=== PATIENT | female | born 1990 | race Caucasian/White ===

== ENCOUNTER 2018-02-01 01:39 | Inpatient (IN) | payer OTHER, SELFPAY ==
[2018-02-01 02:32] LABS: Absolute Lymphocytes (CBC) 2.2 K/uL (0.7-4.9); Absolute Monocytes 1.2 K/uL (0.1-1.3); Absolute Neutrophil 11.2 K/uL (1.8-8.0); Basophils % 0.3 % (0-1.3); Eosinophils % 0.5 % (0-4.4); Hematocrit 38.2 % (36.0-45.0); Lymphocytes % 14.7 % (15.3-44.8); MCH 29.5 pg (27.0-35.0); MPV 8.3 fL (7.6-11.3); RBC Red Blood Cell Count 4.25 M/uL (3.86-4.86)
[2018-02-01 02:43] LABS: Bicarbonate 23 mEq/L (21-31); Glucose Level 92 mg/dL (65-120); Potassium 3.4 mEq/L (3.6-5.0); Sodium Level 133 mEq/L (135-145)
[2018-02-01 02:49] LABS: ALT/SGPT 12 IU/L (10-60); AST/SGOT 17 IU/L (10-42); Albumin 4.2 g/dL (3.2-5.5); Alkaline Phosphatase 58 IU/L (42-121); BUN Blood Urea Nitrogen 10 mg/dL (6-20); Bilirubin Direct 0.3 mg/dL (0-0.2); Bilirubin Total 1.4 mg/dL (0.3-1.2); Protein, Total 7.1 g/dL (6.0-8.3)
[2018-02-01 02:50] LABS: Lipase < 10 U/L (22-51)
[2018-02-01 03:09] LABS: Urine Blood NEGATIVE (NEG); Urine Glucose NEGATIVE (NEG); Urine Protein NEGATIVE (NEG)
[2018-02-01] MEDS ORDERED: CEFTRIAXONE/SWI 1gm 1 GM/10 ML SYR ONE (03:27)
[2018-02-01] MEDS ORDERED: NA CHLORIDE 0.9% 1,000 ML ONE (03:33)
[2018-02-01 03:34] LABS: Urine Culture Reflex Order NOT NEEDED
[2018-02-01 03:35] LABS: Urine Bacteria 20-50 /HPF (<20); Urine Mucus 1+ /HPF (NONE SEEN); Urine RBC <5 /HPF (NONE SEEN)
[2018-02-01] MEDS ORDERED: NS KCL 20MEQ 1,000 ML IV ONE (05:11)
[2018-02-01] MEDS ORDERED: METRONIDAZOLE 500mg IVPB 500 MG/100 ML BAG IV ONE (05:11)
--- NOTE | 2018-02-01 05:12 | ER ---
Nurse's Notes [facility] Name: Yael Acevedo Age: 28 yrs Sex: Female : 1990 Arrival Date: 02/01/2018 Time: 01:40 Bed 5 Private MD: Diagnosis: Abdominal tenderness;Left sided colitis;Acute appendicitis;Cystitis Presentation: 02/01 01:45 Presenting complaint: Patient states: that yesterday she woke up with abd pain that fc radiates to her right back. States that she thought it was her kidney so she started to take AZO. Transition of care: patient was not received from another setting of care. Onset of symptoms was January 31, 2018. Initial Sepsis Screen: Does the patient meet any 2 criteria? HR > 90 bpm. Yes Does the patient have a suspected source of infection? Yes: Dysuria/Frequency/Urgency/UTI. Care prior to arrival: Medication(s) given: Azo, Tramadol, Midol, stool softners. 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 - Social history:: Smoking status: Patient uses tobacco products, smokes one-half pack cigarettes per day, Patient uses alcohol, occasionally. street drugs, marijuana. Screenin:45 Abuse screen: Denies threats or abuse. Nutritional screening: No deficits noted. fc Tuberculosis screening: No symptoms or risk factors identified. Fall Risk None identified. 01:56 Abuse screen: Denies threats or abuse. Denies injuries from another. Nutritional mg2 screening: No deficits noted. Tuberculosis screening: No symptoms or risk factors identified. Fall Risk None identified. Assessment: 01:57 General: Appears in no apparent distress. comfortable. General: Behavior is calm, mg2 cooperative. Neuro: Level of Consciousness is awake, alert, obeys commands. Cardiovascular: Capillary refill Patient's skin is warm and dry. Respiratory: Airway is patent Respiratory effort is even, labored, Respiratory pattern is regular, symmetrical. GI: Abdomen is non-distended, Reports lower abdominal pain. : Reports pain. EENT: No signs and/or symptoms were reported regarding the EENT system. Derm: Skin is intact, Skin is pink, warm \T\ dry. normal. Musculoskeletal: Circulation, motion, and sensation intact. 02:22 GI: Bowel sounds present X 4 quads. Abd is soft and non tender Reports. ak1 03:57 Reassessment: Patient appears in no apparent distress at this time. Patient is alert, ak1 oriented x 3, equal unlabored respirations, skin warm/dry/pink. 05:32 Reassessment: Patient appears in no apparent distress at this time. Patient and/or ak1 family updated on plan of care and expected duration. Pain level reassessed. Patient is alert, oriented x 3, equal unlabored respirations, skin warm/dry/pink. Vital Signs: 01:45 BP 132 / 88; Pulse 113; Resp 18; Temp 98.9(O); Pulse Ox 99% on R/A; Weight 48.99 kg fc (R); Height 5 ft. 0 in. (152.40 cm) (R); Pain 8/10; 02:19 BP 120 / 80; Pulse 94; Resp 18; Pulse Ox 100% on R/A; mt 03:50 BP 115 / 75; Pulse 90; Resp 18; Pulse Ox 100% on R/A; ak1 05:31 BP 103 / 62; Pulse 96; Resp 18; Temp 98.9(O); Pulse Ox 100% on R/A; Pain 4/10; ak1 01:45 Body Mass Index 21.09 (48.99 kg, 152.40 cm) ED Course: 01:40 Patient arrived in ED. am2 01:45 Arm band placed on Patient placed in an exam room, on a stretcher. 01:45 Patient has correct armband on for positive identification. Bed in low position. Call light in reach. Pulse ox on. NIBP on. 01:45 No provider procedures requiring assistance completed. 01:54 Triage completed. 01:55 Hiro Palmer PA is PHCP. jr8 01:55 Jf Snyder MD is Attending Physician. jr8 01:56 Patient has correct armband on for positive identification. Bed in low position. Call mg2 light in reach. Door closed. 02:22 Kellie Gonzales RN is Primary Nurse. ak1 02:23 Initial lab(s) drawn, by ne, sent to lab. Urine collected: clean catch specimen. ak1 Inserted saline lock: 20 gauge in right antecubital area, using aseptic technique. Blood collected. 03:59 CT Abd/Pelvis - W/Contrast In Process Unspecified. EDMS 05:11 Jalyn Turcios MD is Hospitalizing Provider. kemar 06:16 Patient admitted, IV remains in place. ak1 09:08 Primary Nurse role handed off by Kellie Gonzales RN 09:08 Tayler Castillo RN is Primary Nurse. sv Administered Medications: 03:31 Drug: Rocephin - (cefTRIAXone) 1 grams Route: IVPB; Infused Over: 30 mins; Site: right mg2 antecubital; 05:08 Follow up: IV Status: Completed infusion ak1 03:34 Drug: NS 0.9% 1000 ml Route: IV; Rate: 1 bolus; Site: right antecubital; mg2 05:15 Follow up: IV Status: Completed infusion ak1 05:15 Drug: Flagyl 500 mg Volume: 100 ml; Route: IVPB; Rate: 200 ml/hr; Infused Over: 30 ak1 mins; Site: right antecubital; 06:17 Follow up: IV Status: Infusion continued upon admission ak1 05:31 Drug: NS 0.9% with KCl 20 mEq/L 1000 ml Route: IV; Rate: 125 ml/hr; Site: right ak1 antecubital; 06:17 Follow up: IV Status: Infusion continued upon admission ak1 06:24 CANCELLED (med not found): fentaNYL (PF) 25 mcg IVP once ak1 06:24 Not Given (medication not found): fentaNYL (PF) 25 mcg IVP once ak1 06:44 Not Given (Physician Discretion): Zofran 4 mg IVP once; over 2 minutes mg2 Outcome: 02:22 Condition: good ak1 05:12 Decision to Hospitalize by Provider. kemar 06:16 Admitted to ER Hold. Please see [facility] for further documentation. ak1 06:16 Instructed on the need for admit. 09:51 Patient left the ED. sv Signatures: Dispatcher [employer] EDMA Tayler Castillo RN RN sv Anderson, Corey, MD MD cha Chretien Liana, RN RN fc Hiro Palmer PA PA jr8 Kellie Gonzales RN RN ak1 Trinidad Mcwilliams Moriah mt Gardose, Michele, RN RN mg2
--- NOTE | 2018-02-01 05:12 | EDPHYS ---
Physician Documentation [facility] Name: Yael Acevedo Age: 28 yrs Sex: Female : 1990 Arrival Date: 02/01/2018 Time: 01:40 Bed 5 Private MD: ED Physician Jf Snyder HPI: 02/01 02:22 This 28 yrs old Female presents to ER via Ambulatory with complaints of jr8 Abdominal Pain - radiating to mid back. 02:22 The patient presents with abdominal pain that is diffuse. Onset: The symptoms/episode jr8 began/occurred acutely, today. The symptoms do not radiate. Associated signs and symptoms: none. The symptoms are described as stabbing, steady. Modifying factors: The symptoms are alleviated by nothing, the symptoms are aggravated by nothing. Severity of pain: At its worst the pain was moderate in the emergency department the pain is unchanged. The patient has not experienced similar symptoms in the past. The patient has not recently seen a physician. 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 - Social history:: Smoking status: Patient uses tobacco products, smokes one-half pack cigarettes per day, Patient uses alcohol, occasionally. street drugs, marijuana. ROS: 02:22 Eyes: Negative for injury, pain, redness, and discharge, ENT: Negative for injury, jr8 pain, and discharge, Neck: Negative for injury, pain, and swelling, Cardiovascular: Negative for chest pain, palpitations, and edema, Respiratory: Negative for shortness of breath, cough, wheezing, and pleuritic chest pain, Back: Negative for injury and pain, MS/Extremity: Negative for injury and deformity, Skin: Negative for injury, rash, and discoloration, Neuro: Negative for headache, weakness, numbness, tingling, and seizure. 02:22 Abdomen/GI: Positive for abdominal pain, Negative for nausea, vomiting, and diarrhea, abdominal distension, anorexia, dysphagia, hematemesis, black/tarry stool, rectal pain, rectal bleeding, bowel incontinence, flatulence. Exam: 02:22 Eyes: Pupils equal round and reactive to light, extra-ocular motions intact. Lids and jr8 lashes normal. Conjunctiva and sclera are non-icteric and not injected. Cornea within normal limits. Periorbital areas with no swelling, redness, or edema. ENT: Nares patent. No nasal discharge, no septal abnormalities noted. Tympanic membranes are normal and external auditory canals are clear. Oropharynx with no redness, swelling, or masses, exudates, or evidence of obstruction, uvula midline. Mucous membranes moist. Neck: Trachea midline, no thyromegaly or masses palpated, and no cervical lymphadenopathy. Supple, full range of motion without nuchal rigidity, or vertebral point tenderness. No Meningismus. Cardiovascular: Regular rate and rhythm with a normal S1 and S2. No gallops, murmurs, or rubs. Normal PMI, no JVD. No pulse deficits. Respiratory: Lungs have equal breath sounds bilaterally, clear to auscultation and percussion. No rales, rhonchi or wheezes noted. No increased work of breathing, no retractions or nasal flaring. Back: No spinal tenderness. No costovertebral tenderness. Full range of motion. Skin: Warm, dry with normal turgor. Normal color with no rashes, no lesions, and no evidence of cellulitis. MS/ Extremity: Pulses equal, no cyanosis. Neurovascular intact. Full, normal range of motion. Neuro: Awake and alert, GCS 15, oriented to person, place, time, and situation. Cranial nerves II-XII grossly intact. Motor strength 5/5 in all extremities. Sensory grossly intact. Cerebellar exam normal. Normal gait. 02:22 Abdomen/GI: Inspection: abdomen appears normal, Bowel sounds: active, all quadrants, Palpation: soft, in all quadrants, mild abdominal tenderness, in the right lower quadrant and left lower quadrant, mass, is not appreciated, rebound tenderness, is not appreciated, voluntary guarding, is not appreciated, involuntary guarding, is not appreciated, no appreciated organomegaly, Indicators: McBurney's point is not tender, Jimenes's sign is negative, Rovsing's sign is negative, Liver: no appreciated palpable abnormalities, tenderness, is not appreciated. Vital Signs: 01:45 BP 132 / 88; Pulse 113; Resp 18; Temp 98.9(O); Pulse Ox 99% on R/A; Weight 48.99 kg fc (R); Height 5 ft. 0 in. (152.40 cm) (R); Pain 8/10; 02:19 BP 120 / 80; Pulse 94; Resp 18; Pulse Ox 100% on R/A; mt 03:50 BP 115 / 75; Pulse 90; Resp 18; Pulse Ox 100% on R/A; ak1 05:31 BP 103 / 62; Pulse 96; Resp 18; Temp 98.9(O); Pulse Ox 100% on R/A; Pain 4/10; ak1 01:45 Body Mass Index 21.09 (48.99 kg, 152.40 cm) fc MDM: 01:55 Patient medically screened. [facility] 18:11 Data reviewed: vital signs, nurses notes, lab test result(s), radiologic studies, CT jr8 scan. Data interpreted: Pulse oximetry: on room air is 100 %. Interpretation: normal. Counseling: I had a detailed discussion with the patient and/or guardian regarding: the historical points, exam findings, and any diagnostic results supporting the discharge/admit diagnosis, lab results, radiology results, the need for further work-up and treatment in the hospital. 02/01 02:02 Order name: Urine Dipstick--Ancillary (enter results) [facility] 02/01 02:02 Order name: Urine --Ancillary (enter results) [facility] 02/01 02:03 Order name: Basic Metabolic Panel; Complete Time: 02: [facility] 02/01 02:03 Order name: CBC with Diff; Complete Time: 03: [facility] 02/01 02:03 Order name: Creatinine for Radiology; Complete Time: 02: 02/01 02:03 Order name: Hepatic Function; Complete Time: 02:51 [facility] 02/01 02:03 Order name: Lipase; Complete Time: :51 [facility] 02/01 02:04 Order name: Urine Microscopic Only; Complete Time: 05:04 [facility] 02/01 02:40 Order name: CT Abd/Pelvis - W/Contrast; Complete Time: 18:11 02/01 03:23 Order name: Urine Culture [facility] 02/01 02:03 Order name: IV Saline Lock; Complete Time: 02: [facility] 02/01 02:03 Order name: Labs collected and sent; Complete Time: 02: [facility] 02/01 02:03 Order name: Urine Dipstick-Ancillary (obtain specimen); Complete Time: : 8 02/01 05:15 Order name: CONS Physician Consult EDMS Administered Medications: 03:31 Drug: Rocephin - (cefTRIAXone) 1 grams Route: IVPB; Infused Over: 30 mins; Site: right mg2 antecubital; 05:08 Follow up: IV Status: Completed infusion ak1 03:34 Drug: NS 0.9% 1000 ml Route: IV; Rate: 1 bolus; Site: right antecubital; mg2 05:15 Follow up: IV Status: Completed infusion ak1 05:15 Drug: Flagyl 500 mg Volume: 100 ml; Route: IVPB; Rate: 200 ml/hr; Infused Over: 30 ak1 mins; Site: right antecubital; 06:17 Follow up: IV Status: Infusion continued upon admission ak1 05:31 Drug: NS 0.9% with KCl 20 mEq/L 1000 ml Route: IV; Rate: 125 ml/hr; Site: right ak1 antecubital; 06:17 Follow up: IV Status: Infusion continued upon admission ak1 06:24 CANCELLED (med not found): fentaNYL (PF) 25 mcg IVP once ak1 06:24 Not Given (medication not found): fentaNYL (PF) 25 mcg IVP once ak1 06:44 Not Given (Physician Discretion): Zofran 4 mg IVP once; over 2 minutes mg2 Disposition: 05:16 Co-signature as Attending Physician, Jf Snyder MD I agree with the assessment and kemar plan of care. Disposition: 02/01/18 05:12 Hospitalization ordered by Jalyn Turcios for Inpatient Admission. Preliminary diagnosis are Abdominal tenderness, Left sided colitis, Acute appendicitis, Cystitis. - Bed requested for [facility] ER HOLD. - Status is Inpatient Admission. sv - Condition is Stable. - Problem is new. - Symptoms have improved. UTI on Admission? Yes Signatures: Dispatcher [employer] EDMS Paz Mayer rg2 Tayler Castillo RN RN sv Anderson, Corey, MD MD cha Chretien, Felicia, RN RN fc Roszak, Josh, PA PA jr8 Kellie Gonzales RN RN ak1 Gardose, Tim, RN RN mg2 Corrections: (The following items were deleted from the chart) 06:24 06:18 fentaNYL (PF) 25 mcg IVP once ordered. [facility] ak1 06:24 05:12 Hospitalization Ordered by Jalyn Turcios MD for Inpatient Admission. Preliminary rg2 diagnosis is Abdominal tenderness; Left sided colitis; Acute appendicitis; Cystitis. Bed requested for Telemetry/MedSurg (Inpatient). Status is Inpatient Admission. Condition is Stable. Problem is new. Symptoms have improved. UTI on Admission? Yes. kemar 09:51 06:24 02/01/2018 05:12 Hospitalization Ordered by Jalyn Turcios MD for Inpatient sv Admission. Preliminary diagnosis is Abdominal tenderness; Left sided colitis; Acute appendicitis; Cystitis. Bed requested for [facility] ER HOLD. Status is Inpatient Admission. Condition is Stable. Problem is new. Symptoms have improved. UTI on Admission? Yes. rg2
[2018-02-01] MEDS ORDERED: ACETAMINOPHEN 500 MG TAB PO PRN (06:09)
[2018-02-01] MEDS ORDERED: ALPRAZOLAM 0.25 MG TABLET PO PRN (06:09)
[2018-02-01 06:23] VITALS: BMI 21.1
[2018-02-01] MEDS ORDERED: MORPHINE 4 MG/ML SYR IV PRN (06:26)
[2018-02-01] MEDS ORDERED: MORPHINE 4 MG/ML SYR ONE (06:36)
[2018-02-01] MEDS: ONDANSETRON 4 MG/2 ML VIAL IV PRN ×2 (06:43→19:24)
--- NOTE | 2018-02-01 06:56 | P.HP ---
Certification for Inpatient Patient admitted to: Inpatient With expected LOS: >2 Midnights Patient will require the following post-hospital care: None Practitioner: I am a practitioner with admitting privileges, knowledge of patient current condition, hospital course, and medical plan of care. Services: Services provided to patient in accordance with Admission requirements found in Title 42 Section 412.3 of the Code of Federal Regulations Patient History Date of Service: 02/01/18 Reason for admission: Abdominal pain History of Present Illness: Patient is a 28-year-old female who came to the hospital with abdominal pain. She has similar pain about 5 months ago. At that time is subsided after she rested for about 3-4 days. She never followed up with the physician regarding the pain. She did not have any further pain until yesterday around 6:00 a.m.. She will go with abdominal pain and it progressed through the night. She was finally brought into the emergency room where she had workup done. She had a leukocytosis and a CT which revealed enlarged appendix. Patient is having being significant abdominal discomfort. Patient was admitted to the hospital for further evaluation. Allergies No Known Allergies Allergy (Unverified 02/01/18 06:02) Home Medications: NK [No Home Meds] 02/01/18 - Past Medical/Surgical History Has patient received pneumonia vaccine in the past: No Diabetic: No -: HELLP syndrome while -: - Family History Father Family History: Reviewed- Non-Contributory - Social History Smoking Status: Current every day smoker Alcohol use: Yes CD- Drugs: Yes Caffeine use: Yes Place of Residence: Home Review of Systems 10-point ROS is otherwise unremarkable Physical Examination - Vital Signs Temperature: 98 F Blood Pressure: 140/80 Pulse: 80 Respirations: 18 Pulse Ox (%): 96 - Physical Exam General: Alert, In no apparent distress, Oriented x3 HEENT: Atraumatic, Normocephalic Neck: 2+ carotid pulse no bruit, JVD not distended, No Thyromegaly Respiratory: Clear to auscultation bilaterally, Normal air movement Cardiovascular: Normal pulses, Regular rate/rhythm, Normal S1 S2 Gastrointestinal: Normal bowel sounds ( We will se), Hypoactive, Non-distended ( Mrs.), No guarding, Tenderness, Rebound Musculoskeletal: No clubbing, No swelling, No contractures Integumentary: No rashes Neurological: Normal gait, Normal speech, Normal strength at 5/5 x4 extr, Normal tone, Sensation intact, Cranial nerves 3-12 intact Lymphatics: No axilla or inguinal lymphadenopathy External genitalia: No edema - Studies Laboratory Data (last 24 hrs) 02/01/18 02:19: Creatinine 0.53 02/01/18 02:19: WBC 14.7 H, Hgb 12.5, Hct 38.2, Plt Count 278 02/01/18 02:19: Sodium 133 L, Potassium 3.4 L, BUN 10, Creatinine 0.50, Glucose 92, Total Bilirubin 1.4 H, AST 17, ALT 12, Alkaline Phosphatase 58, Lipase < 10 L Assessment & Plan - Problems (Diagnosis) (1) Abdominal pain Current Visit: Yes Status: Acute (2) Appendicitis Current Visit: Yes Status: Acute - Plan Plan: 1. IV fluids 2. IV antibiotics 3. Pain control 4. Surgery consultation 5. GI and DVT prophylaxis - Advance Directives Does patient have a Living Will: No Does patient have a Durable POA for Healthcare: No - Code Status/Comfort Care Code Status Assessed: Yes Code Status: Full Code Critical Care: No Time Spent Managing PTS Care (In Minutes): 50
[2018-02-01] MEDS: NA CHLORIDE 0.9% 1,000 ML IV SCH ×2 (07:00→21:06)
[2018-02-01] MEDS ORDERED: MEPERIDINE HCL 25 MG/0.5 ML IVP PRN (07:22)
[2018-02-01] MEDS ORDERED: MEPERIDINE HCL 25 MG/0.5 ML ONE (07:25)
[2018-02-01] MEDS ORDERED: ENOXAPARIN 40 MG/0.4 ML SQ ONE (07:57)
[2018-02-01] MEDS ORDERED: Levofloxacin500mg IV 500 MG/100 ML BAG IV ONE (07:57)
[2018-02-01] MEDS: ENOXAPARIN 40 MG/0.4 ML SQ SCH (08:00)
[2018-02-01] MEDS ORDERED: ALBUTEROL 2.5 MG/3 ML NEB SOL ONE (08:00)
[2018-02-01] MEDS: Levofloxacin500mg IV 500 MG/100 ML BAG IV SCH (08:00)
[2018-02-01] MEDS ORDERED: IPRATROPIUM BROM 0.5MG/2.5ML ONE (08:01)
--- NOTE | 2018-02-01 08:13 | RAD REPORT ---
EXAM DESCRIPTION: CTAbdomen Pelvis W Contrast - 02/01/2018 5:33 am CLINICAL HISTORY: Abdominal pain. COMPARISON: None. TECHNIQUE: Biphasic CT imaging of the abdomen and pelvis was performed with 100 ml non-ionic IV cont rast. All CT scans are performed using dose optimization technique as appropriate and may include automated exposure control or mA/KV adjustment according to patient size. FINDINGS: The lung bases are clear. The liver, spleen, pancreas, adrenal glands and kidneys are within normal limits. Small renal cysts. Wall thickening is present involving the sigmoid colon with adjacent mild pericolonic inflammatory ch anges. Fluid-filled colon is noted throughout with areas of mucosal thickening also present involving the ascending colon near the hepatic flexure. No bowel obstruction, free air or abscess. The appendi x appears thickened and dilated to 9 mm. No evidence of significant lymphadenopathy. No suspicious bony findings. IMPRESSION: The appendix is thickened and dilated to 9-10 mm. This would be most compatible with acu te appendicitis. Areas of pericolonic inflammatory change and mucosal thickening seen, greatest in the sigmoid colon, suggests colitis is also present.
[2018-02-01] MEDS: IPRATROPIUM BROM 0.5MG/2.5ML NEB SCH ×3 (08:26→19:48)
[2018-02-01] MEDS: ALBUTEROL 2.5 MG/3 ML NEB SOL NEB SCH ×3 (08:26→19:48)
[2018-02-01] MEDS ORDERED: Ringers Lactate 1,000 ML IV ONE (10:08)
--- NOTE | 2018-02-01 10:42 | P.CNS ---
Date of Consult: 02/01/18 PC: This 28-year-old female presents emergency room with severe abdominal pain for diagnosis and treatment. HPC: Patient has been complaining of generalized abdominal pain for the last 3- 4 days. Pain is now localized to the right lower quadrant. Has had a similar episode to this a few months ago. Did not seek any workup at that time. Not associated with any diarrhea, no dysuria. PMH: HELLP syndrome after PSHx: Negative SOC: No known allergy SYS REVIEW: States she is otherwise healthy, no cough wheeze or shortness of breath. No urinary complaints. No change in bowel habit. Weight steady.has been O/E awake alert vital signs are stable relatively comfortable at the moment HEENT: Dilated pupils, not jaundiced Chest: Clear ABD: Tender with guarding in the right lower quadrant LOCO: Intact DATA: Elevated white cell count, CT scan shows evidence of colitis in the sigmoid area as well as a distended appendix. Radiographic findings consistent with appendicitis. IMPRESSION: Acute appendicitis PLAN: I will take her to the operating room for laparoscopic appendectomy. The risks of this procedure have been discussed. The possibility of bleeding, infection, injury to bowel blood vessels has been outlined. The possible need for an open and/or further surgeries and procedures was discussed. She will most likely need a colonoscopy in another 4-6 weeks as well. This was explained to the patient. She understands and wants us to proceed.
[2018-02-01] MEDS ORDERED: MIDAZOLAM HCL 2 MG/2 ML INJ ONE (10:50)
[2018-02-01] MEDS ORDERED: PROPOFOL 200 MG/20 ML VIAL IV ONE (10:51)
[2018-02-01] MEDS ORDERED: LIDOCAINE 1% MPF 5 ML VIAL ONE (10:52)
[2018-02-01] MEDS ORDERED: GLYCOPYRROLATE 0.2 MG/ML SYR ONE (10:52)
[2018-02-01] MEDS ORDERED: ROCURONIUM 50 MG/5 ML VIAL IV ONE (10:52)
[2018-02-01] MEDS ORDERED: FENTANYL CITR 100 MCG/2 ML ONE ×2 (10:53→11:05)
[2018-02-01] MEDS ORDERED: ONDANSETRON 4 MG/2 ML VIAL ONE (10:54)
[2018-02-01] MEDS ORDERED: NEOSTIGMINE 1 MG/ML -5 ML SYRINGE ONE (11:05)
[2018-02-01] MEDS ORDERED: KETOROLAC 30 MG/ML INJ ONE (11:17)
--- NOTE | 2018-02-01 11:31 | P.OP ---
Preoperative diagnosis: Acute abdomen with appendicitis Postoperative diagnosis: The same Primary procedure: Laparoscopic appendectomy Anesthesia: General Estimated blood loss: Less than 10 cc Specimen: 1 appended Operative Technique: The patient brought the operating room and placed supine on the table. After the induction of adequate general endotracheal anesthesia, the area of the abdomen was prepped with a DuraPrep solution, and she was draped in usual aseptic manner A subumbilical incision was made this brought down through the skin and subcutaneous tissue the support was then used to carefully enter the peritoneal cavity and created pneumoperitoneum to approximately 12 mm of mercury. Under direct vision a 5 mm trocar was placed in the right upper quadrant another in the lower midline with the patient placed in reverse Trendelenburg and rolled to the left. We were able to visualize the right lower quadrant. We could distended appendix with minimal the serosal inflammation. The appendix was grasped. Instruction is space with the cecum was identified. An opening was made into the mesentery of the appendix. The newer Stapler was now placed across the base of the appendix at its junction with the cecum and fired. The mesentery of the appendix was now taken down using a vascular reload. This pus was placed into an Endo-Catch, and brought out through the umbilical trocar site. At this point the abdomen is inspected to ensure adequate hemostasis. No other gross intra-abdominal pathology was noted. At this point the umbilical trocar site was approximated using an Endo Close and chewable suture. The pneumoperitoneum was collapsed, the suture tied, and marcelo applied to the skin. At the end of the procedure she was stable when sent to the recovery room. Needle sponge instrument count were correct. No drains were placed Complications: None Transferred to: Recovery Room Condition: Good
[2018-02-01] MEDS: MEPERIDINE HCL 25 MG/0.5 ML ONE ×2 (11:50→11:55)
--- NOTE | 2018-02-01 12:51 | P.PN ---
Subjective Date of Service: 02/01/18 Primary Care Provider: Unknown Chief Complaint: Abdominal pain Subjective: Other (Patient still with abdominal pain.) Physical Examination - Vital Signs Temperature: 97.0 F Blood Pressure: 102/53 Pulse: 80 Respirations: 16 Pulse Ox (%): 99 - Physical Exam General: Alert, In no apparent distress, Oriented x3, Cooperative HEENT: Atraumatic Neck: Supple Respiratory: Clear to auscultation bilaterally, Normal air movement Cardiovascular: Normal pulses, Regular rate/rhythm Gastrointestinal: Normal bowel sounds, Soft and benign, Non-distended, No masses , No rebound, No guarding, Tenderness (Pain to the right lower quadrant) Integumentary: No tenderness/swelling, No erythema, No warmth, No cyanosis Neurological: Normal speech, Normal strength at 5/5 x4 extr, Normal tone, Normal affect Lymphatics: No axilla or inguinal lymphadenopathy - Studies Laboratory Data (last 24 hrs) 02/01/18 02:19: Creatinine 0.53 02/01/18 02:19: WBC 14.7 H, Hgb 12.5, Hct 38.2, Plt Count 278 02/01/18 02:19: Sodium 133 L, Potassium 3.4 L, BUN 10, Creatinine 0.50, Glucose 92, Total Bilirubin 1.4 H, AST 17, ALT 12, Alkaline Phosphatase 58, Lipase < 10 L Medications List Reviewed: Yes Assessment & Plan - Problems (Diagnosis) (1) UTI (urinary tract infection) Current Visit: Yes Status: Acute Plan: Will continue IV antibiotic therapy. Urine culture obtained. Qualifiers: Urinary tract infection type: site unspecified Hematuria presence: without hematuria Qualified Code(s): N39.0 - Urinary tract infection, site not specified (2) Abdominal pain Onset Date: 02/01/18 Current Visit: Yes Status: Acute Plan: CT scan reports appendicitis. Surgery has been consulted. Plan for surgery soon. Qualifiers: Abdominal location: right lower quadrant Qualified Code(s): R10.31 - Right lower quadrant pain (3) Appendicitis Onset Date: 02/01/18 Current Visit: Yes Status: Acute Plan: CT scan shows appendicitis. Surgery is planned. Patient NPO. Qualifiers: Appendicitis type: acute appendicitis Discharge Plan: Home Plan to discharge in: 24 Hours Time Spent Managing Pts Care (In Minutes): 55
[2018-02-01] MEDS ORDERED: TRAMADOL HCL 50 MG TAB PO PRN (14:00)
[2018-02-01] MEDS ORDERED: Morphine 2 MG/2 ML SYR IV PRN (14:00)
[2018-02-01] MEDS: HYDROCODONE/APAP 7.5/325 MG TAB PO PRN ×2 (14:23→21:06)
[2018-02-01] MEDS: METRONIDAZOLE 500mg IVPB 500 MG/100 ML BAG IV SCH (17:39)
[2018-02-02] MEDS: HYDROCODONE/APAP 10/325 TAB PO PRN ×2 (00:27→04:36)
[2018-02-02] MEDS: METRONIDAZOLE 500mg IVPB 500 MG/100 ML BAG IV SCH ×2 (00:33→09:52)
[2018-02-02] MEDS: ALBUTEROL 2.5 MG/3 ML NEB SOL NEB SCH ×2 (01:30→07:57)
[2018-02-02] MEDS: IPRATROPIUM BROM 0.5MG/2.5ML NEB SCH ×2 (01:30→07:57)
[2018-02-02 04:41] LABS: Absolute Lymphocytes (CBC) 1.6 K/uL (0.7-4.9); Absolute Monocytes 0.5 K/uL (0.1-1.3); Basophils % 0.5 % (0-1.3); Eosinophils % 1.7 % (0-4.4); Hematocrit 29.5 % (36.0-45.0); Lymphocytes % 22.3 % (15.3-44.8); MCH 29.9 pg (27.0-35.0); MCV 90.3 fL (80-100); MPV 8.3 fL (7.6-11.3); Monocytes % 7.3 % (3.3-12.3); RBC Red Blood Cell Count 3.27 M/uL (3.86-4.86)
[2018-02-02 04:50] LABS: ALT/SGPT 11 IU/L (10-60); AST/SGOT 11 IU/L (10-42); Alkaline Phosphatase 49 IU/L (42-121); Bicarbonate 25 mEq/L (21-31); Bilirubin Total 0.6 mg/dL (0.3-1.2); Glucose Level 85 mg/dL (65-120); Magnesium 1.6 mg/dL (1.8-2.5); Phosphorus 2.7 mg/dL (2.5-4.3); Potassium 3.3 mEq/L (3.6-5.0); Protein, Total 5.4 g/dL (6.0-8.3); Sodium Level 138 mEq/L (135-145)
[2018-02-02 04:52] LABS: BUN Blood Urea Nitrogen < 5 mg/dL (6-20)
[2018-02-02] MEDS: Levofloxacin500mg IV 500 MG/100 ML BAG IV SCH (06:06)
[2018-02-02] MEDS: ONDANSETRON 4 MG/2 ML VIAL IV PRN (07:34)
[2018-02-02 08:44] VITALS: O2SAT 98
[2018-02-02] MEDS: ENOXAPARIN 40 MG/0.4 ML SQ SCH (09:52)
[2018-02-02] MEDS: NA CHLORIDE 0.9% 1,000 ML IV SCH (09:53)
--- NOTE | 2018-02-02 11:08 | P.DS ---
Admission Date: 02/01/18 Discharge Date: 02/02/18 Primary Care Provider: Unknown Disposition: ROUTINE DISCHARGE Discharge Condition: GOOD Reason for Admission: Abdominal pain Consultations: Surgery-Dr. Heredia Procedures: Surgery: Laparoscopic appendectomy - Problems (1) UTI (urinary tract infection) Current Visit: Yes Status: Suspected Qualifiers: Urinary tract infection type: site unspecified Hematuria presence: without hematuria Qualified Code(s): N39.0 - Urinary tract infection, site not specified (2) Abdominal pain Onset Date: 02/01/18 Current Visit: Yes Status: Acute Qualifiers: Abdominal location: right lower quadrant Qualified Code(s): R10.31 - Right lower quadrant pain (3) Appendicitis Onset Date: 02/01/18 Current Visit: Yes Status: Acute Qualifiers: Appendicitis type: acute appendicitis (4) Colitis Current Visit: Yes Status: Suspected (5) Anemia Current Visit: Yes Status: Acute Qualifiers: Anemia type: other cause (6) Hypokalemia Current Visit: Yes Status: Acute (7) Hypomagnesemia Current Visit: Yes Status: Acute (8) Hyponatremia Current Visit: Yes Status: Acute Brief History of Present Illness: 28-year-old female presented emergency room with abdominal pain. Patient found to have acute appendicitis with possible sigmoid colitis. Patient was admitted for treatment. Hospital Course: Patient presented with abdominal pain. CT identified appendicitis with possible sigmoid colitis. Patient was started on IV antibiotic therapy. Surgery evaluated the patient. Surgery was recommended. Patient had laparoscopic appendectomy. No complications were noted. After surgery patient was able to tolerate her diet and passing gas. Patient was able to ambulate without any difficulty. At discharge patient will continue with Levaquin 500 mg 1 pill daily for 7 days. Tramadol 50 mg 1 pill 3 times a day as needed for pain will be provided. Recommendation on no heavy lifting, pushing or pulling. Patient will continue with postsurgical recommendations. Recommendations for the patient follow up with surgery within 1 week to follow up her care. Patient also likely had UTI. Urine culture pending at discharge. This can be followed up by her PCP. At discharge she will continue with Levaquin 500 mg 1 pill once daily for 7 days. Recommendation is to recheck urinalysis in 7-10 days to monitor resolution. UTI prevention education will be provided. Patient with mild anemia post surgery. Patient will continue with multi vitamin daily. Recommendation is to recheck lab-CBC in 2-4 weeks to monitor her progress. Patient had mild electrolyte deficiencies. Electrolytes replaced in the hospital. She will continue with multi vitamin daily. Recommendation is to recheck lab-BMP in 1-2 weeks to monitor progress. Vital Signs/Physical Exam: Temp Pulse Resp BP Pulse Ox 98.5 F 86 16 103/59 L 100 02/02/18 08:00 02/02/18 08:00 02/02/18 08:00 02/02/18 08:00 02/02/18 08:00 General: Alert, In no apparent distress, Oriented x3, Cooperative HEENT: Atraumatic, Mucous membr. moist/pink Neck: Supple Respiratory: Clear to auscultation bilaterally, Normal air movement Cardiovascular: Normal pulses, Regular rate/rhythm Gastrointestinal: Normal bowel sounds, Soft and benign, Non-distended, No tenderness, No masses, No rebound, No guarding, Other (Post surgical changes noted) Musculoskeletal: No erythema, No tenderness, No warmth Integumentary: No erythema, No warmth, No cyanosis Neurological: Normal speech, Normal strength at 5/5 x4 extr, Normal tone, Normal affect Laboratory Data at Discharge: WBC 7.4 K/uL (4.3-10.9) D 02/02/18 04:17 Hgb 9.8 g/dL (12.0-15.0) L D 02/02/18 04:17 Hct 29.5 % (36.0-45.0) L D 02/02/18 04:17 Plt Count 229 K/uL (152-406) 02/02/18 04:17 Sodium 138 mEq/L (135-145) 02/02/18 04:17 Potassium 3.3 mEq/L (3.6-5.0) L 02/02/18 04:17 BUN < 5 mg/dL (6-20) L 02/02/18 04:17 Creatinine 0.50 mg/dL (0.44-1.00) 02/02/18 04:17 Glucose 85 mg/dL (65-120) 02/02/18 04:17 Phosphorus 2.7 mg/dL (2.5-4.3) 02/02/18 04:17 Magnesium 1.6 mg/dL (1.8-2.5) L 02/02/18 04:17 Total Bilirubin 0.6 mg/dL (0.3-1.2) 02/02/18 04:17 AST 11 IU/L (10-42) 02/02/18 04:17 ALT 11 IU/L (10-60) 02/02/18 04:17 Alkaline Phosphatase 49 IU/L (42-121) 02/02/18 04:17 Lipase < 10 U/L (22-51) L 02/01/18 02:19 Home Medications: Levofloxacin [Levaquin] 500 mg PO DAILY #7 tab 02/02/18 Multivitamin [Daily Multiple Vitamin] 1 each PO DAILY #30 tablet 02/02/18 traMADol HCL [Ultram*] 50 mg PO TID PRN #20 tab 02/02/18 New Medications: Levofloxacin [Levaquin] 500 mg PO DAILY #7 tab Multivitamin [Daily Multiple Vitamin] 1 each PO DAILY #30 tablet traMADol HCL [Ultram*] 50 mg PO TID PRN #20 tab PRN Reason: Pain Mild Patient Discharge Instructions: 1. Patient will need a follow up with a PCP in 1 week to follow up this hospitalization. 2. Patient presented with abdominal pain. Patient found to have acute appendicitis. Patient evaluated by surgery. Patient had laparoscopic appendectomy. After surgery patient was able to tolerate her diet. Patient able to ambulate. At discharge patient will continue with Levaquin 500 mg 1 pill daily for 7 days. Tramadol 50 mg 1 pill 3 times a day as needed for pain will be provided. Recommendation on no heavy lifting, pushing or pulling. Patient will continue with postsurgical recommendations. Recommendations for the patient follow up with surgery within 1 week to follow up her care. 3. Patient also likely had UTI. At discharge she will continue with Levaquin 500 mg 1 pill once daily for 7 days. Recommendation is to recheck urinalysis in 7-10 days to monitor resolution. UTI prevention education will be provided. 4. Patient with mild anemia post surgery. Patient will continue with multi vitamin daily. Recommendation is to recheck lab-CBC in 2-4 weeks to monitor her progress. 5. Patient had mild electrolyte deficiencies. Electrolytes replaced in the hospital. She will continue with multi vitamin daily. Recommendation is to recheck lab-BMP in 1-2 weeks to monitor progress. Diet: Soft GI, advance as tolerated Activity: No lifting more than 10 lbs Time spent managing pt's care (in minutes): 55
[2018-02-02 12:05] VITALS: BP 107/55; TEMP 99.1
== END 2018-02-02 13:03 | disposition home or self-care (01) | DRG 342 ==
LOC: ER 01:39 → ERHOLD 05:26 → 4TH 12:29
PROVIDERS: ADMIT Hospitalist; ATTEND Hospitalist
PROC: 0DTJ4ZZ Resection of Appendix, Percutaneous Endoscopic Approach (ICD-10-PCS; principal; 2018-02-01 11:45)
DX: K35.80 Unspecified acute appendicitis (principal); N39.0 Urinary tract infection, site not specified; E87.1 Hypo-osmolality and hyponatremia; D64.9 Anemia, unspecified; E83.42 Hypomagnesemia; E87.6 Hypokalemia; K52.9 Noninfective gastroenteritis and colitis, unspecified; F17.210 Nicotine dependence, cigarettes, uncomplicated
CPT/HCPCS: 36415; 74177; 80048; 80053; 80076; 81003; 81015; 81025; 83690; 83735; 84100; 85025; 87086; 87088; 88304; 94640; 96365; 96366; 96367; 99285; J0696; J1650; J2175; J2250; J2270; J2405; J2710; J3010; J7030; Q9967